=== PATIENT | female | born 1935 | race Caucasian/White ===

== ENCOUNTER 2017-05-30 17:40 | Inpatient (IN) | payer OTHER ==
[~2017-05-30] VITALS: Ht 147.3 cm; Wt 71.0 kg
--- NOTE | 2017-05-30 20:02 | ED NURSING NOTES ---
Clinical Report - Nurses Formerly [facility] [address] [place] [address] 05/30/2017 17:42 [id number] Triage time 18:15. Acuity: LEVEL 3. Chief Complaint: (Weakness). Alert. No acute distress. --18:20 Kael Fermin R.N. 18:15 05/30/17. BP: 123/37. HR: 64. RR: 20. O2 saturation: 96%. Temp: 98.7 F. Pain level now 0/10. --18:20 Kael Fermin R.N. Weight: 70.3 kg stated. Height/Length: 57 inches Per Patient. BMI: 33.6. --18:18 Kael Fermin R.N. Medications Albuterol Sulfate HFA Inhalation. Amitriptyline HCl Oral 25 mg, daily. Azelastine HCl Nasal. Clopidogrel Bisulfate Oral (Tablet 75 mg), daily. Folic Acid Oral. Hydroxychloroquine Sulfate Oral 200, Daily. Levofloxacin Oral. Levothyroxine Sodium Oral 112 mcg, daily. Lisinopril Oral 5 mg, daily. MetFORMIN HCl Oral 500 mg, daily. Metoprolol Tartrate Oral 25 mg, Daily. Omeprazole Oral 40 mg, daily. Pravastatin Sodium Oral 40 mg, daily. PredniSONE Oral 1 mg, daily. Senna Oral. --19:14 Kael Fermin R.N. Allergies None. --18:16 Kael Fermin R.N. History Historian: patient and family. Onset. (7 days ago). ( Patient seen at [facility] 7 days ago and dx with pneumonia and given iv antibiotics and sent home on oral. Seen 4 days later at [facility] and given a different ab. unsure of usual meds). She has had weakness. --18:20 Kael Fermin R.N. Interventions ID band on patient. To room. --18:20 Kael Fermin R.N. PHYSICAL ASSESSMENT GENERAL / NEURO / PSYCH: Alert. Oriented X 4. Appears in no acute distress. RESPIRATORY: Respirations not labored. --18:20 Kael Fermin R.N. NURSING PROGRESS NOTES Patient gowned. Call light placed in reach. Bed placed in lowest position. --18:20 Kael Fermin R.N. Care transferred and report given. ( Report to DEANNA Zavala). --19:21 Kael Fermin R.N. EKG time: (1905). EKG was ordered, performed by a tech and shown to the ED physician. --19:23 Elías Vicente R.N. late entry - 19:12 05/30/17. Patient transported to radiology by stretcher with tech. (19:May 30 2017). --19:30 Sally Ingram R.N. late entry - 19:05/30/17. Patient returned from radiology by stretcher with tech. (:May 30 2017). --19:30 Sally Ingram R.N. 19:15 05/30/17. BP: 123/47. HR: 60. RR: 20. O2 saturation: 99% on room air. Pain level now: 0/10. --19:32 Sally Ingram R.N. 19:32 05/30/17. BP: 126/102 (large adult cuff) taken on the left arm. HR: 60. RR: 22. O2 saturation: 96% on room air. Pain level now: 0/10. --19:33 Sally Ingram R.N. Patient ID band checked for patient name and birthdate: patient confirmed. Blood samples drawn from the peripheral IV site by nurse ; labeled in presence of the patient and sent to lab: rainbow set: blood culture (1st set). Line flushed with 10 mL normal saline post blood draw. --19:45 Brandon Boyle R.N. 19:43 05/30/2017 Started bag #1 1000 mL IV Fluids IV NS (Saline); bolus of 500 mL over 30 minute(s) then at 1000 mL/hr over 30 minute(s) via site #1 via IV pump. Allergies verified and confirmed 5 rights. IV patency established. IV site checked: no pain, redness, or swelling. IV flushed thoroughly pre- and post-medication administration. --19:48 Sally Ingram R.N. 19:46 05/30/2017 Site #1 started via IV in the left forearm with an 20g angiocath, with aseptic technique and good blood return; one attempt. Blood drawn: rainbow set. Labeled in the presence of the patient and sent to the lab. Saline lock flushed with 10 mL saline. --19:46 Brandon Boyle R.N. Patient transported to CT by stretcher with tech. (19:48 May 30 2017). --19:48 Sally Ingram R.N. Patient returned from CT by stretcher with tech. (19:53 May 30 2017). --19:53 Sally Ingram R.N. 20:05 05/30/17. ( Patient up to commode, UA sample collected.). --20:05 Sally Ingram R.N. ( Patients filling out paperwork for admittance, Patient complained of BP cuff being too tight, this was removed and replaced on left side). --20:31 Sally Ingram R.N. 20:33 05/30/17. BP: 156/44 (regular adult cuff) taken on the right arm, while sitting. HR: 58. RR: 20. O2 saturation: 99% on room air. Pain level now: 0/10. --20:34 Sally Ingram R.N. 20:43 05/30/17. BP: 122/50 (large adult cuff) taken on the left arm, while sitting. HR: 60. RR: 18. O2 saturation: 99% on room air. Pain level now: 0/10. --20:43 Sally Ingram R.N. Cardiac rhythm: normal sinus rhythm. --20:45 Sally Ingram R.N. 21:05 05/30/17. HR: 62. RR: 20. O2 saturation: 97% on room air. Pain level now: 0/10. --21:05 Sally Ingram R.N. ( Dr Cárdenas in with patient and ). --21:05 Sally Ingram R.N. ( Dr Cárdenas is done with patient, will call for transport). --21:26 Sally Ingram R.N. ( Dr Cárdenas back in with patient, daughter at bedside with patients ). --21:33 Sally Ingram R.N. 18:30 05/30/17. BP: 111/57 (large adult cuff) taken on the left arm. HR: 59. RR: 18. O2 saturation: 97% on room air. Pain level now: 0/10. --22:00 Sally Ingram R.N. 18:45 05/30/17. BP: 126/41 (large adult cuff) taken on the left arm. HR: 59. RR: 18. O2 saturation: 97% on room air. Pain level now: 0/10. --22:00 Sally Ingram R.N. 19:45 05/30/17. BP: 127/47 (large adult cuff) taken on the left arm. HR: 60. RR: 18. O2 saturation: 97% on room air. Pain level now: 010. --22:01 Sally Ingram R.N. 20:00 05/30/17. BP: 135/40 (large adult cuff) taken on the left arm. HR: 66. RR: 18. O2 saturation: 95% on room air. Pain level now: 0/10. --22:02 Sally Ingram R.N. 20:15 05/30/17. BP: 156/44 (large adult cuff) taken on the right arm. HR: 62. RR: 20. O2 saturation: 99% on room air. Pain level now: 010. --22:02 Sally Ingram R.N. 21:15 05/30/17. BP: 126/46 (large adult cuff) taken on the left arm, while sitting. HR: 62. RR: 20. O2 saturation: 99% on room air. Pain level now: 0/10. --22:03 Sally Ingram R.N. 21:50 05/30/2017 IV Fluids IV NS Continued: upon transfer at the rate of 125 mL/hr. 250 mL remaining bag #1. IV patency established. IV site checked: no pain, redness, or swelling. IV flushed thoroughly. --22:05 Sally Ingram R.N. DISPOSITION / DISCHARGE Report was given to a nurse via a phone call. Report included patient's care, treatment, medications, reviewed medication reconcilliation, and condition (including any recent changes or anticipated changes). All questions were answered. Report was acknowledged. (DEANNA Cristina). Bed obtained and ready ([address] Cárdenas sees patient). --20:44 Sally Ingram R.N. Departure time: 2156May 30 2017. --22:04 Sally Ingram R.N. 22:03 05/30/17. BP: 139/42 (large adult cuff) taken on the left arm. HR: 62. RR: 20. O2 saturation: 98% on room air. Temp: 98.6 F (oral). Pain level now: 0/10. --22:04 Sally Ingram R.N. Admitted to Acute Care (205). Transported via stretcher by transport team. --22:05 Sally Ingram R.N. Locked/Released at 05/31/2017 3:36 by Sally Ingram R.N.
--- NOTE | 2017-05-30 20:02 | ED ORDER SUMMARY ---
..... Patient: GUANAKITO FRAGA OrderSheet [facility] VisitID: [id number] [place] [address] 82y, F Registration Date/Time: 05/30/2017 ORDER SHEET Weight: 70.3 kg (stated) Allergies: None GENERAL ORDERS: Chest 2V Urgent (18:58 05/30/2017 Indra AMAYA) (Ack 19:02 Sarah) (19:25 MCampbell) Cover Machine Operator (Continuous) (18:58 05/30/2017 Indra AMAYA) (19:30 JSanders R.N.) UA-Culture if indicated Urgent (18:59 05/30/2017 Indra AMAYA) (Ack 19:02 Sarah) (20:14 JSanders R.N.) Cardiac Panel Stat (18:05/30/2017 Indra AMAYA) (Ack 19:02 Sarah) (19:44 JSanders R.N.) BNP Urgent (18:59 05/30/2017 Indra AMAYA) (Ack 19:02 Sarah) (19:45 JSanders R.N.) Lipase Urgent (18:59 05/30/2017 Indra AMAYA) (Ack 19:02 Sarah) (19:45 JSanders R.N.) Amylase Urgent (18:59 05/30/2017 Indra AMAYA) (Ack 19:02 Sarah) (19:45 JSanders R.N.) TSH Urgent (18:59 05/30/2017 Indra AMAYA) (Ack 19:02 Sarah) (19:45 JSanders R.N.) Pulse oximeter (18:59 05/30/2017 Indra AMAYA) (19:31 JSanders R.N.) EKG - ER Stat (18:59 05/30/2017 Indra AMAYA) (19:10 JSimbeck R.N.) PCT (Procalcitonin) Urgent (18:59 05/30/2017 Indra AMAYA) (Ack 19:02 Sarah) (19:45 JSanders R.N.) CRP Urgent (18:59 05/30/2017 Indra AMAYA) (Ack 19:02 Sarah) (19:45 BRDAFORDanders R.N.) Blood Culture (Yes) (see med list) Urgent (18:59 05/30/2017 Indra AMAYA) (Ack 19:02 Sarah) (19:45 BRADFORDanders R.N.) Soft Tissue Neck Urgent (19:26 05/30/2017 Indra AMAYA) (Ack 19:27 Adriana) (19:52 MCampbell) MEDICATION ORDERS: IV FLUIDS: IV NS : initial bolus 500 mL (1000 mL/hr), then 125 mL/hr for 4h (NOW); Routine (18:58 05/30/2017 Indra AMAYA) (Ack 19:07 JSanders R.N.) (19:48 JSanders R.N.) ORDER SHEET NOTES: [Electronically signed by Sally Ingram R.N. (03:36 05/31/2017)] [Electronically signed by Riky Pascual MD (07:21 05/31/2017)] [Electronically locked/signed by Sally Ingram R.N. (03:36 05/31/2017)]
--- NOTE | 2017-05-30 20:02 | ED CLINICAL REPORT ---
Clinical Report - Physicians/Mid Levels [facility] [address] [place] [address] 05/30/2017 17:42 [id number] Time Seen: 18:02 May 30 2017. Arrived- By private vehicle. Historian- patient. CPT: ER phys charges level 5 plus (#[id number]). EKG interpretation (#[id number]). HISTORY OF PRESENT ILLNESS Chief Complaint: WEAKNESS. ( Onset. (7 days ago). ( Patient seen at [facility] 7 days ago and dx with pneumonia and given iv antibiotics and sent home on oral. Seen 4 days later at [facility] and given a different ab. unsure of usual meds). She has had weakness.). Severity described as moderate at its maximum. When seen in the E.D., severity described as moderate. Described as feeling weak all over. This started about 1 weeks ago and is still present. No nausea or vomiting. (Pt had a fall 5 days ago while using her walker and could not get up . Family members had to be called to help get her up. This is unusual for her. is afraid she will continue falling when trying to use her walker.). Recent medical care: The patient was seen recently at another facility in the emergency department ([place] [facility] 05/23-). ( Seen at [facility] 3 days ago and not much better. Put on Levaquin. Pt not better since then.). Seen for similar symptoms. Evaluation/treatment: x-rays and labs- Rocephin 1g in ER , zithromax 500 mg in ER. Discharged with Zithromax. Diagnosis: (Pneumonia). REVIEW OF SYSTEMS No headache, double vision, fainting episodes, chest pain or palpitations. No fever, abdominal pain, diarrhea, difficulty with urination or skin rash. She has had a sore throat, weakness, and a cough. She has had difficulty walking. All systems otherwise negative, except as recorded above. PAST HISTORY Hypertension. ( Breast CA : Bilateral mastectomies. CAD , stents times 2 , last 2014. LAD and RCA. CVA: Diplopia Diabetes Esophageal dysmotility Fatty Liver Fractures: Right foot. GERD Hypothyroid Obesity). Medications: Albuterol Sulfate HFA Inhalation. Amitriptyline HCl Oral 25 mg, daily. Azelastine HCl Nasal. Clopidogrel Bisulfate Oral (Tablet 75 mg), daily. Folic Acid Oral. Hydroxychloroquine Sulfate Oral 200, Daily. Levofloxacin Oral. Levothyroxine Sodium Oral 112 mcg, daily. Lisinopril Oral 5 mg, daily. MetFORMIN HCl Oral 500 mg, daily. Metoprolol Tartrate Oral 25 mg, Daily. Omeprazole Oral 40 mg, daily. Pravastatin Sodium Oral 40 mg, daily. PredniSONE Oral 1 mg, daily. Senna Oral. Allergies: None. SOCIAL HISTORY Former smoker. No alcohol use. ADDITIONAL NOTES The nursing notes have been reviewed. PHYSICAL EXAM Vital Signs: 05/30/2017 18:15 BP: 123/37. HR: 64. RR: 20. O2 saturation: 96%. Temp: 98.7 F. Appearance: Alert. No acute distress. (Pale and weak appearing.). Eyes: No nystagmus. Extraocular movements normal. ENT: Normal ENT inspection. TM's normal. Dry mucous membranes present. Pharynx normal. (no pharyngeal swelling.). Neck: Normal inspection. Neck supple. No meningeal signs or lymphadenopathy. CVS: Normal heart rate and rhythm. Heart sounds normal. Respiratory: No respiratory distress. Rhonchi present. Abdomen: Soft and nontender. Back: Normal inspection. Skin: Normal skin color. No rash. Extremities: Extremities exhibit normal ROM. No calf tenderness. No lower extremity edema. Neuro: Alert. Mood/affect normal. Speech normal. Cranial nerves normal (as tested). No cerebellar findings. She has had constant, generalized weakness. No sensory deficit. Reflexes normal. LABS, X-RAYS, AND EKG EKG: Normal sinus rhythm. Rate: 58. Bradycardia. Normal P waves. RBBB. Non-specific ST segment / T wave abnormalities. Prior EKG unavailable. The study has been interpreted contemporaneously. The study has been independently viewed by me. The EKG appears to be a good tracing. Chest X-ray: Infiltrate in the left upper lobe and left lower lobe. Consistent with pneumonia. Views: PA and lateral. Technique: good. The X-rays were independently viewed by me. Laboratory Tests: CBC w Diff: (CHARLY: 05/30/2017 19:40) ( [facility] 05/30/2017 19:54) IP Test Result Flag Units (Reference) WHITE BLOOD COUNT 5.3 K/uL (4.5-11.5) MANUAL DIFFERENTIAL TO FOLLOW. RED BLOOD COUNT 3.14 L M/uL (4.00-5.20) HEMOGLOBIN 10.3 L gm/dL (12.0-16.0) HEMATOCRIT 30.9 L % (36.0-46.0) MEAN CELL VOLUME 98 fL (80-100) MEAN CORPUSCULAR HGB 33 pg (26-34) MEAN CORPUSCULAR HGB CONC 33 g/dL (31-37) RED CELL DISTRIBUTION WIDTH 15.3 H % (11.6-14.8) PLATELET COUNT 433 H K/uL (150-400) [id number]: (CHARLY: 05/30/2017 19:40) ( [facility] 05/30/2017 20:02) Final results Test Result Flag Units (Reference) C-REACTIVE PROTEIN 3.3 H mg/dL (0.0-0.9) BNP: (CHARLY: 05/30/2017 19:40) ( [facility] 05/30/2017 20:20) Final results Test Result Flag Units (Reference) B-TYPE NATRIURETIC PEPTIDE 46.2 pg/ml (5-100) Lipase: (CHARLY: 05/30/2017 19:40) ( [facility] 05/30/2017 20:11) Final results Test Result Flag Units (Reference) LIPASE 176 U/L (73-393) AMYLASE 67 U/L (25-115) THYROID STIMULATING HORMONE 1.043 uIU/mL (0.30-3.74) CHEM 13 PANEL: (CHARLY: 05/30/2017 19:40) ( [facility] 05/30/2017 20:10) Final results Test Result Flag Units (Reference) GLUCOSE 81 mg/dL (70-110) BUN 17 mg/dL (7-18) CREATININE 1.1 mg/dL (0.6-1.3) Estimated GFR 50.79 mL/min Estimated GFR- >60 mL/min Note: Persistent reduction over 3 months in eGFR<60 mL/min/1.73 m2 defines CKD. Patients with eGFR values>=60 mL/min/1.73 m2 may also have CKD if evidence ofpersistent proteinuria. Additional information may be foundat www.kidney.org. SODIUM 137 mmol/L (136-145) POTASSIUM 4.8 mmol/L (3.5-5.1) CHLORIDE 102 mmol/L (98-107) CARBON DIOXIDE 25 mmol/L (21-32) CALCIUM 8.6 mg/dL (8.5-10.1) TOTAL PROTEIN 6.4 g/dL (6.4-8.2) ALBUMIN 2.7 L g/dL (3.3-5.0) BILIRUBIN, TOTAL 0.6 mg/dL (0.0-1.0) ALKALINE PHOSPHATASE 79 U/L (46-116) AST (SGOT) 35 U/L (15-37) ALT (SGPT) 26 U/L (12-78) CPK 70 U/L (24-260) MAGNESIUM 2.1 mg/dL (1.8-2.4) TROPONIN I <0.05 ng/mL (0.00-1.5) TROPONIN REFERENCE RANGE:<0.1 NEGATIVE0.1-1.5 INDETERMINANT>1.5 POSITIVE . PROGRESS AND PROCEDURES Course of Care: IV NS BC times 1 Pt already on levaquin and zithromax. Antibiotic choice deferred to Dr Cárdenas. Discussed case with on-call health care provider, (Melia). Reviewed test results. Agreed upon treatment plan and decision to admit. Health care provider will see patient in ED. Patient/family counseled. Old medical records ordered. Disposition orders written. Disposition: Admitted to Acute Care. CLINICAL IMPRESSION [place].LLL, RLL pneumonia : Failed out patient treatment. Progressive weakness Falls. (Electronically signed by Riky Pascual MD 05/31/2017 7:21)
--- NOTE | 2017-05-30 20:02 | ED ORDER SUMMARY ---
..... Patient: GUANAKITO FRAGA OrderSheet [facility] VisitID: [id number] [place] [address] 82y, F Registration Date/Time: 05/30/2017 ORDER SHEET Weight: 70.3 kg (stated) Allergies: None GENERAL ORDERS: Chest 2V Urgent (18:58 05/30/2017 Indra AMAYA) (Ack 19:02 Sarah) (19:25 MCampbell) Freight Clerk (Continuous) (18:58 05/30/2017 Indra AMAYA) (19:30 JSanders R.N.) UA-Culture if indicated Urgent (18:59 05/30/2017 Indra AMAYA) (Ack 19:02 Sarah) (20:14 JSanders R.N.) Cardiac Panel Stat (18:05/30/2017 Indra AMAYA) (Ack 19:02 Sarah) (19:44 JSanders R.N.) BNP Urgent (18:59 05/30/2017 Indra AMAYA) (Ack 19:02 Sarah) (19:45 JSanders R.N.) Lipase Urgent (18:59 05/30/2017 Indra AMAYA) (Ack 19:02 Sarah) (19:45 JSanders R.N.) Amylase Urgent (18:59 05/30/2017 Indra AMAYA) (Ack 19:02 Sarah) (19:45 JSanders R.N.) TSH Urgent (18:59 05/30/2017 Indra AMAYA) (Ack 19:02 Sarah) (19:45 JSanders R.N.) Pulse oximeter (18:59 05/30/2017 Indra AMAYA) (19:31 JSanders R.N.) EKG - ER Stat (18:59 05/30/2017 Indra AMAYA) (19:10 JSimbeck R.N.) PCT (Procalcitonin) Urgent (18:59 05/30/2017 Indra AMAYA) (Ack 19:02 Sarah) (19:45 JSanders R.N.) CRP Urgent (18:59 05/30/2017 Indra AMAYA) (Ack 19:02 Sarah) (19:45 BRADFORDanders R.N.) Blood Culture (Yes) (see med list) Urgent (18:59 05/30/2017 Indra AMAYA) (Ack 19:02 Sarah) (19:45 BRADFORDanders R.N.) Soft Tissue Neck Urgent (19:26 05/30/2017 Indra AMAYA) (Ack 19:27 Adriana) (19:52 MCampbell) MEDICATION ORDERS: IV FLUIDS: IV NS : initial bolus 500 mL (1000 mL/hr), then 125 mL/hr for 4h (NOW); Routine (18:58 05/30/2017 Indra AMAYA) (Ack 19:07 JSanders R.N.) (19:48 JSanders R.N.) ORDER SHEET NOTES: [Electronically signed by Sally Ingram R.N. (03:36 05/31/2017)] [Electronically signed by Riky Pascual MD (07:21 05/31/2017)] [Electronically locked/signed by Sally Ingram R.N. (03:36 05/31/2017)]
--- NOTE | 2017-05-30 20:02 | ED CLINICAL REPORT ---
Clinical Report - Physicians/Mid Levels [facility] [address] [place] [address] 05/30/2017 17:42 [id number] Time Seen: 18:02 May 30 2017. Arrived- By private vehicle. Historian- patient. CPT: ER phys charges level 5 plus (#[id number]). EKG interpretation (#[id number]). HISTORY OF PRESENT ILLNESS Chief Complaint: WEAKNESS. ( Onset. (7 days ago). ( Patient seen at [facility] 7 days ago and dx with pneumonia and given iv antibiotics and sent home on oral. Seen 4 days later at [facility] and given a different ab. unsure of usual meds). She has had weakness.). Severity described as moderate at its maximum. When seen in the E.D., severity described as moderate. Described as feeling weak all over. This started about 1 weeks ago and is still present. No nausea or vomiting. (Pt had a fall 5 days ago while using her walker and could not get up . Family members had to be called to help get her up. This is unusual for her. is afraid she will continue falling when trying to use her walker.). Recent medical care: The patient was seen recently at another facility in the emergency department ([facility] 05/23-). ( Seen at [facility] 3 days ago and not much better. Put on Levaquin. Pt not better since then.). Seen for similar symptoms. Evaluation/treatment: x-rays and labs- Rocephin 1g in ER , zithromax 500 mg in ER. Discharged with Zithromax. Diagnosis: (Pneumonia). REVIEW OF SYSTEMS No headache, double vision, fainting episodes, chest pain or palpitations. No fever, abdominal pain, diarrhea, difficulty with urination or skin rash. She has had a sore throat, weakness, and a cough. She has had difficulty walking. All systems otherwise negative, except as recorded above. PAST HISTORY Hypertension. ( Breast CA : Bilateral mastectomies. CAD , stents times 2 , last 2014. LAD and RCA. CVA: Diplopia Diabetes Esophageal dysmotility Fatty Liver Fractures: Right foot. GERD Hypothyroid Obesity). Medications: Albuterol Sulfate HFA Inhalation. Amitriptyline HCl Oral 25 mg, daily. Azelastine HCl Nasal. Clopidogrel Bisulfate Oral (Tablet 75 mg), daily. Folic Acid Oral. Hydroxychloroquine Sulfate Oral 200, Daily. Levofloxacin Oral. Levothyroxine Sodium Oral 112 mcg, daily. Lisinopril Oral 5 mg, daily. MetFORMIN HCl Oral 500 mg, daily. Metoprolol Tartrate Oral 25 mg, Daily. Omeprazole Oral 40 mg, daily. Pravastatin Sodium Oral 40 mg, daily. PredniSONE Oral 1 mg, daily. Senna Oral. Allergies: None. SOCIAL HISTORY Former smoker. No alcohol use. ADDITIONAL NOTES The nursing notes have been reviewed. PHYSICAL EXAM Vital Signs: 05/30/2017 18:15 BP: 123/37. HR: 64. RR: 20. O2 saturation: 96%. Temp: 98.7 F. Appearance: Alert. No acute distress. (Pale and weak appearing.). Eyes: No nystagmus. Extraocular movements normal. ENT: Normal ENT inspection. TM's normal. Dry mucous membranes present. Pharynx normal. (no pharyngeal swelling.). Neck: Normal inspection. Neck supple. No meningeal signs or lymphadenopathy. CVS: Normal heart rate and rhythm. Heart sounds normal. Respiratory: No respiratory distress. Rhonchi present. Abdomen: Soft and nontender. Back: Normal inspection. Skin: Normal skin color. No rash. Extremities: Extremities exhibit normal ROM. No calf tenderness. No lower extremity edema. Neuro: Alert. Mood/affect normal. Speech normal. Cranial nerves normal (as tested). No cerebellar findings. She has had constant, generalized weakness. No sensory deficit. Reflexes normal. LABS, X-RAYS, AND EKG EKG: Normal sinus rhythm. Rate: 58. Bradycardia. Normal P waves. RBBB. Non-specific ST segment / T wave abnormalities. Prior EKG unavailable. The study has been interpreted contemporaneously. The study has been independently viewed by me. The EKG appears to be a good tracing. Chest X-ray: Infiltrate in the left upper lobe and left lower lobe. Consistent with pneumonia. Views: PA and lateral. Technique: good. The X-rays were independently viewed by me. Laboratory Tests: CBC w Diff: (CHARLY: 05/30/2017 19:40) ( [facility] 05/30/2017 19:54) IP Test Result Flag Units (Reference) WHITE BLOOD COUNT 5.3 K/uL (4.5-11.5) MANUAL DIFFERENTIAL TO FOLLOW. RED BLOOD COUNT 3.14 L M/uL (4.00-5.20) HEMOGLOBIN 10.3 L gm/dL (12.0-16.0) HEMATOCRIT 30.9 L % (36.0-46.0) MEAN CELL VOLUME 98 fL (80-100) MEAN CORPUSCULAR HGB 33 pg (26-34) MEAN CORPUSCULAR HGB CONC 33 g/dL (31-37) RED CELL DISTRIBUTION WIDTH 15.3 H % (11.6-14.8) PLATELET COUNT 433 H K/uL (150-400) [id number]: (CHARLY: 05/30/2017 19:40) ( [facility] 05/30/2017 20:02) Final results Test Result Flag Units (Reference) C-REACTIVE PROTEIN 3.3 H mg/dL (0.0-0.9) BNP: (CHARLY: 05/30/2017 19:40) ( [facility] 05/30/2017 20:20) Final results Test Result Flag Units (Reference) B-TYPE NATRIURETIC PEPTIDE 46.2 pg/ml (5-100) Lipase: (CHARLY: 05/30/2017 19:40) ( [facility] 05/30/2017 20:11) Final results Test Result Flag Units (Reference) LIPASE 176 U/L (73-393) AMYLASE 67 U/L (25-115) THYROID STIMULATING HORMONE 1.043 uIU/mL (0.30-3.74) CHEM 13 PANEL: (CHARLY: 05/30/2017 19:40) ( [facility] 05/30/2017 20:10) Final results Test Result Flag Units (Reference) GLUCOSE 81 mg/dL (70-110) BUN 17 mg/dL (7-18) CREATININE 1.1 mg/dL (0.6-1.3) Estimated GFR 50.79 mL/min Estimated GFR- >60 mL/min Note: Persistent reduction over 3 months in eGFR<60 mL/min/1.73 m2 defines CKD. Patients with eGFR values>=60 mL/min/1.73 m2 may also have CKD if evidence ofpersistent proteinuria. Additional information may be foundat [email or web address]. SODIUM 137 mmol/L (136-145) POTASSIUM 4.8 mmol/L (3.5-5.1) CHLORIDE 102 mmol/L (98-107) CARBON DIOXIDE 25 mmol/L (21-32) CALCIUM 8.6 mg/dL (8.5-10.1) TOTAL PROTEIN 6.4 g/dL (6.4-8.2) ALBUMIN 2.7 L g/dL (3.3-5.0) BILIRUBIN, TOTAL 0.6 mg/dL (0.0-1.0) ALKALINE PHOSPHATASE 79 U/L (46-116) AST (SGOT) 35 U/L (15-37) ALT (SGPT) 26 U/L (12-78) CPK 70 U/L (24-260) MAGNESIUM 2.1 mg/dL (1.8-2.4) TROPONIN I <0.05 ng/mL (0.00-1.5) TROPONIN REFERENCE RANGE:<0.1 NEGATIVE0.1-1.5 INDETERMINANT>1.5 POSITIVE . PROGRESS AND PROCEDURES Course of Care: IV NS BC times 1 Pt already on levaquin and zithromax. Antibiotic choice deferred to Dr Cárdenas. Discussed case with on-call health care provider, (Melia). Reviewed test results. Agreed upon treatment plan and decision to admit. Health care provider will see patient in ED. Patient/family counseled. Old medical records ordered. Disposition orders written. Disposition: Admitted to Acute Care. CLINICAL IMPRESSION CAM[place].LLL, RLL pneumonia : Failed out patient treatment. Progressive weakness Falls. (Electronically signed by Riky Pascual MD 05/31/2017 7:21)
--- NOTE | 2017-05-30 20:29 | DIAGNOSTIC IMAGING REPORT ---
PROCEDURE: XR SOFT TISSUE NECK INDICATION: DIFFICULTY BREATHING TECHNIQUE: AP and lateral views. COMPARISON: None. FINDINGS: Soft tissues of the neck are within normal limits, including the airway, laryngeal ventricle, and epiglottis. Nasopharynx appears normal. No evidence of radiopaque foreign body. Moderate degenerative changes of the cervical spine. IMPRESSION: 1. Normal soft tissues of the neck.
--- NOTE | 2017-05-30 20:39 | DIAGNOSTIC IMAGING REPORT ---
PROCEDURE: XR CHEST 2 VIEW INDICATION: Recent diagnosis of left upper lobe pneumonia. TECHNIQUE: PA and lateral views. COMPARISON: None. FINDINGS: Allowing for suboptimal inspiration, there are mild bibasilar parenchymal changes, right greater than left. There mild increase parenchymal change of the left upper lung. Heart and mediastinum are normal. There mild degenerate changes of the thoracic spine. There is a 10% old compression deformity upper lumbar vertebra. IMPRESSION: 1. Allowing for suboptimal inspiration, mild increased parenchymal changes at the lung bases and left upper lung compatible with pneumonia (e.g., aspiration, bacterial). 2. Findings discussed with Dr. Pascual.
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
--- NOTE | 2017-05-30 22:13 | Progress Note ---
Subjective General ADVANCED CARE PLAN History of Present Illness The patient is a 82-year-old white female with a significant past medical history of hypertension, breast CA status post bilateral mastectomy, coronary disease status post coronary stent placement, cerebrovascular disease, diabetes mellitus, gastroesophageal reflux, hypothyroidism, obesity, allergic rhinitis, rheumatoid arthritis, hyperlipidemia, and recent pneumonia who presented to [facility] emergency department on the day of admission secondary to complaints of diffuse weakness. [facility] ER evaluation was consistent with pneumonia, diffuse weakness, and anemia. Secondary to the above, the patient was admitted by Sherman Cárdenas M.D. for further evaluation and treatment. For other history present illness, past medical history, family history, social history, review of systems, and admission physical examination please see the patient's history and physical examination and ER visit note in the patient's medical record. A discussion was undertaken with the patient regarding previous advance care arrangements/decisions. The following advanced directives were noted by the patient and discussed with me at the time of admission. ADVANCED DIRECTIVES: 1. Living well: No 2. POLST: Yes 3. CODE STATUS: NO CODE 4. Durable Power Boiler Testing Technician [facility] care: No 5. Donor card: No The patient has expressed interest in not pursuing any form of resuscitation at this time. She has opted not to pursue intubation/mechanical ventilation, CPR, electrical cardioversion, or life-sustaining efforts involving drugs at the time of cardiopulmonary arrest. The patient's wishes were documented in the chart and orders regarding the patient's wishes entered into the [employer] CPOE system. The "Advance Care Plan Document" was distributed to patient to discuss with her family. 15- 30 minutes was spent in performing the above tasks and documentation of the patient's advanced care plan.
--- NOTE | 2017-05-30 22:13 | Progress Note ---
Subjective General ADVANCED CARE PLAN History of Present Illness The patient is a 82-year-old white female with a significant past medical history of hypertension, breast CA status post bilateral mastectomy, coronary disease status post coronary stent placement, cerebrovascular disease, diabetes mellitus, gastroesophageal reflux, hypothyroidism, obesity, allergic rhinitis, rheumatoid arthritis, hyperlipidemia, and recent pneumonia who presented to [facility] emergency department on the day of admission secondary to complaints of diffuse weakness. [facility] ER evaluation was consistent with pneumonia, diffuse weakness, and anemia. Secondary to the above, the patient was admitted by Sherman Cárdenas M.D. for further evaluation and treatment. For other history present illness, past medical history, family history, social history, review of systems, and admission physical examination please see the patient's history and physical examination and ER visit note in the patient's medical record. A discussion was undertaken with the patient regarding previous advance care arrangements/decisions. The following advanced directives were noted by the patient and discussed with me at the time of admission. ADVANCED DIRECTIVES: 1. Living well: No 2. POLST: Yes 3. CODE STATUS: NO CODE 4. Durable Power Engineering Design Supervisor [facility] care: No 5. Donor card: No The patient has expressed interest in not pursuing any form of resuscitation at this time. She has opted not to pursue intubation/mechanical ventilation, CPR, electrical cardioversion, or life-sustaining efforts involving drugs at the time of cardiopulmonary arrest. The patient's wishes were documented in the chart and orders regarding the patient's wishes entered into the [employer] CPOE system. The "Advance Care Plan Document" was distributed to patient to discuss with her family. 15- 30 minutes was spent in performing the above tasks and documentation of the patient's advanced care plan.
[2017-05-30 22:22] VITALS: BP 165/56
[2017-05-31] MEDS ORDERED: AMITRIPTYLINE H25 MG PO (00:06)
[2017-05-31] MEDS ORDERED: ACETAMINOPHEN325 MG PO (00:06)
[2017-05-31] MEDS ORDERED: ASPIRIN 81 LOW81 MG PO (00:07)
[2017-05-31] MEDS ORDERED: AZITHROMYC200 MG/5 M PO (00:08)
[2017-05-31] MEDS ORDERED: CALCIUM CARBON500 MG PO (00:09)
[2017-05-31] MEDS ORDERED: CLOPIDOGREL75 MG PO (00:10)
[2017-05-31] MEDS ORDERED: NORCO1 TA1 PO (00:11)
[2017-05-31] MEDS ORDERED: SYNTHROID112 MCG PO (00:12)
[2017-05-31] MEDS ORDERED: PLAQUENIL200 M1 PO (00:12)
[2017-05-31] MEDS ORDERED: PRINIVIL5 MG PO (00:13)
[2017-05-31] MEDS ORDERED: METFORMIN HCL500 MG PO (00:14)
[2017-05-31] MEDS ORDERED: NITROSTAT0.4 MG SL (00:15)
[2017-05-31] MEDS ORDERED: METOPROLOL SUCC25 MG PO (00:15)
[2017-05-31] MEDS ORDERED: OMEPRAZOLE40 MG PO (00:17)
[2017-05-31] MEDS ORDERED: PRAVACHOL40 MG PO (00:18)
[2017-05-31 02:33] VITALS: BP 135/58
--- NOTE | 2017-05-31 05:02 | Progress Note ---
Subjective General Note Date: May 31, 2017 Admission Date: May 30, 2017 Hospital Day: 2 PCP: Dr. Smith Status: Inpatient, ACU Advanced Directive: NO CODE Room: 205 Admission History: The patient is a 82-year-old white female with a significant past medical history of hypertension, breast CA status post bilateral mastectomy, coronary disease status post coronary stent placement, cerebrovascular disease, diabetes mellitus, gastroesophageal reflux, hypothyroidism, obesity, allergic rhinitis, rheumatoid arthritis, hyperlipidemia, and recent pneumonia who presented to [facility] emergency department on the day of admission secondary to complaints of diffuse weakness. [facility] ER evaluation was consistent with pneumonia, diffuse weakness, and anemia. Secondary to the above, the patient was admitted by Sherman Cárdenas M.D. for further evaluation and treatment. For other history present illness, past medical history, family history, social history, review of systems, and admission physical examination please see the patient's history and physical examination and ER visit note in the patient's medical record. Subjective: The patient states she is doing well. Only complaints at this time are lack of sleep last night. Weakness improved. Denies cough at this time. Patient requests: None Medications and Allergies Medications Current Medications Sig/Chasity Start time Last Medication Dose Route Stop Time Status Admin Atorvastatin Calcium 40 MG QPM 05/31 1800 AC PO Clopidogrel Bisulfate 75 MG DAILY 05/31 0900 AC PO Metoprolol Tartrate 12.5 MG BID 05/31 09 AC PO Insulin Human Lispro See Dose ACHS 05/31 0730 AC Insts (1) SC Levothyroxine Sodium 112 MCG DAILY@0600 05/31 0600 AC PO Enoxaparin Sodium 30 MG QHS 05/31 0100 CAN SC Enoxaparin Sodium 30 MG QHS 05/31 0100 AC 05/31 SC 0134 Levofloxacin/Dextrose 150 ML Q48H 05/31 0100 AC 05/31 IV 0046 Acetaminophen 650 MG Q6H PRN 05/30 2130 AC 05/31 PO 0142 Al Hydrox/Mg Hydrox/ 15 ML Q1H PRN 05/30 2130 AC Simethicone PO Albuterol/Ipratropium 3 ML RTQ6H PRN 05/30 2130 AC IN Atropine Sulfate 0.5 MG Q3MIN PRN 05/30 2130 AC IV Dextrose/Sodium 1,000 ML ASDIRECTED 05/30 2130 AC 06/30 Chloride/Electrolyt IV 0046 Lidocaine HCl See Dose ONCE PRN 05/30 2130 AC Insts (2) IV Magnesium Hydroxide 10 ML DAILY PRN 05/30 2130 AC PO Morphine Sulfate 1 MG Q30MIN PRN 05/30 2130 AC IV Morphine Sulfate 2 MG Q3M PRN 05/30 2130 AC IV Nitroglycerin 0.4 MG Q5M PRN 05/30 2130 AC SL Dose Instructions: (1)Insulin Human Lispro: LOW DOSE SLIDING SCALE (2)Lidocaine HCl: 1.5 MG/KG Allergies Coded Allergies: NKA (05/31/17) Allergies None. --18:16 Kael Fermin R.N. Reconcile Medications Scheduled Medications Acetaminophen (Acetaminophen 325 MG) 325 MG TAB 650 MG PO Q4H (Reported) Amitriptyline HCl (Amitriptyline HCl 25 MG) 25 MG TAB 25 MG PO QHS (Reported) Aspirin (Aspirin 81 Low Dose) 81 MG CHW 81 MG PO DAILY (Reported) Azithromycin (Azithromycin 200 MG/5 Ml Suspension) 200 MG/5 ML KENNEDY 250 MG PO DAILY (Reported) Calcium Carbonate 500 MG CHW 500 MG PO BID (Reported) Clopidogrel Bisulfate (Clopidogrel 75 MG) 75 MG TAB 75 MG PO DAILY (Reported) Hydroxychloroquine Sulfate (Plaquenil 200 MG) 200 MG TAB 200 MG PO DAILY ( Reported) Levothyroxine Sodium (Synthroid 112 Mcg) 112 MCG TAB 112 MCG PO DAILY ( Reported) Lisinopril (Prinivil 5 MG) 5 MG TAB 5 MG PO DAILY (Reported) Metformin Hydrochloride (Metformin HCl 500 MG) 500 MG TAB 500 MG PO AM ( Reported) Metoprolol Succinate (Metoprolol Succinate ER 25 MG) 25 MG TAB 25 MG PO BID ( Reported) Omeprazole 40 MG CAP 40 MG PO DAILY (Reported) Pravastatin Sodium (Pravachol) 40 MG TAB 40 MG PO HS (Reported) Scheduled PRN Medications Hydrocodone-Acetaminophen 5/325 MG ([place] 5/325 MG) 1 TAB TAB 1 TAB PO Q6H PRN PAIN (Reported) Nitroglycerin (Nitrostat 0.4 MG) 0.4 MG SUB 0.4 MG SL Q5MIN X 3 PRN CHEST PAIN (Reported) Physical Exam Vital Signs / I&Os Vital Signs Date Time Temp Pulse Resp B/P Pulse O2 O2 Flow FiO2 Ox Delivery Rate 05/31 0233 98.2 78 18 135/58 95 Room Air 05/30 2222 98.1 60 18 165/56 100 Room Air I&O 05/31 0000 05/30 1600 05/30 0800 Intake Total Output Total 600 Balance -600 General Appearance Alert, Oriented X3, Cooperative, No acute distress Lungs Normal air movement, scattered rhonchi Cardiovascular Regular rate and rhythm, Normal S1 and S2 Abdomen Normal bowel sounds, Soft, No tenderness, No guarding Extremities No cyanosis, No clubbing Neurological Cranial nerves intact, No lateralizing signs Psych/Mental Status Mental status normal, Mood normal LAB Results Laboratory Tests 05/30 Chemistry C-Reactive Protein (0.0 - 0.9 mg/dL) 3.3 B-Natriuretic Peptide (5 - 100 pg/ml) 46.2 Procalcitonin (0 - 0.5 ng/mL) <0.5 Urines Urine Color YELLOW Urine Appearance CLEAR Urine pH (5.0 - 8.0) 5.5 Ur Specific [place] (1.010 - 1.030) 1.015 Urine Protein (NEGATIVE) NEGATIVE Urine Ketones (NEGATIVE) TRACE Urine Blood (NEGATIVE) NEGATIVE Urine Nitrite (NEGATIVE) NEGATIVE Urine Bilirubin (NEGATIVE) NEGATIVE Urine Urobilinogen (0.2 - 1.0 EU/dL) 0.2 Ur Leukocyte Esterase (NEGATIVE) TRACE Urine RBC (0 - 1 rbc/hpf) NONE SEEN Urine WBC (0 - 1 wbc/hpf) 3-5 Ur Epithelial Cells (0 - 5 EPI/hpf) 1-3 Urine Bacteria (NONE SEEN) MODERATE (2+ TO 3+) Urine Glucose (NEGATIVE) NEGATIVE Urine Comment CULTURE INDICATED 05/30 Chemistry Plasma Sodium (136 - 145 mmol/L) 137 Plasma Potassium (3.5 - 5.1 mmol/L) 4.8 Plasma Chloride (98 - 107 mmol/L) 102 CO2 (Enzymatic) (21 - 32 mmol/L) 25 BUN (7 - 18 mg/dL) 17 Creatinine (0.6 - 1.3 mg/dL) 1.1 Est GFR ( Amer) (mL/min) >60 Est GFR (Non-Af Amer) (mL/min) 50.79 Glucose (70 - 110 mg/dL) 81 Plasma Calcium (8.5 - 10.1 mg/dL) 8.6 Plasma Magnesium (1.8 - 2.4 mg/dL) 2.1 Total Bilirubin (0.0 - 1.0 mg/dL) 0.6 AST (15 - 37 U/L) 35 ALT (12 - 78 U/L) 26 Alkaline Phosphatase (46 - 116 U/L) 79 Creatine Kinase (24 - 260 U/L) 70 Troponin (0.00 - 1.5 ng/mL) <0.05 Total Protein (6.4 - 8.2 g/dL) 6.4 Albumin (3.3 - 5.0 g/dL) 2.7 Amylase (25 - 115 U/L) 67 Lipase (73 - 393 U/L) 176 TSH 3rd Generation (0.30 - 3.74 uIU/mL) 1.043 Coagulation INR (0.8 - 1.2) 1.1 Hematology WBC (4.5 - 11.5 K/uL) 5.3 RBC (4.00 - 5.20 M/uL) 3.14 Hgb (12.0 - 16.0 gm/dL) 10.3 Hct (36.0 - 46.0 %) 30.9 MCV (80 - 100 fL) 98 MCH (26 - 34 pg) 33 RDW (11.6 - 14.8 %) 15.3 Neut % (Auto) (50 - 75 %) 20 Lymph % (Auto) (25 - 40 %) 23 Schley % (Auto) (3 - 14 %) 1 Eos % (Auto) (0 - 4 %) 4 Baso % (Auto) (0 - 2 %) 0 Band Neutrophils % (0 - 8 %) 14 Metamyelocytes % (0 - 1 %) 28 Myelocytes (0 - 1 %) 10 Other Cell Type 0 Plt Count, EDTA (150 - 400 K/uL) 433 RBC Morphology NORMAL PUBS MCHC (31 - 37 g/dL) 33 Microbiology Date/Time Procedure - Status Source Growth 05/30 2010 Urine Culture - RECD URINE CC 05/30 1940 Blood Culture - RECD BLOOD Assessment and Plan Problem List 1. Pneumonia Plan -Status improved -Afebrile -WBC within normal limits with improved left shift -Continue Levaquin -Possible discharge in a.m. 2. Weakness Plan -Status improved. -Increase ambulation today. -Possible discharge this p.m. or in a.m. if status continued to improve 3. Hypertension Status Chronic Onset Date Unknown Plan -Blood pressure mildly elevated -Patient placed back on lisinopril 5 mg by mouth daily and Lopressor 12.5 mg by mouth twice a day -Low-salt diet -Monitor with adjustments in medical therapy based on blood pressure measurements 4. Diabetes mellitus Status Chronic Onset Date Unknown Plan -Patient with history of diabetes mellitus -Blood sugar well controlled -Fasting blood sugar today 100 mg/dL -Hemoglobin A1c normal at 5.8% -Insulin sliding scale -Monitor 5. Rheumatoid arthritis Status Chronic Onset Date Unknown Plan -stable -Not problematic -Continue hydroxychloroquine -Continue prednisone at stress dose 20 mg by mouth daily -Monitor -Rapidly wean prednisone 6. Anemia Status Acute Onset Date Unknown Plan -Patient with findings of mild anemia -H&H 9.4/28.5 -B12/folate, iron studies within normal limits -Monitor -Multivitamin - Current status: Fair, improved Anticipated discharge date: Anticipated discharge this p.m. or in a.m. Anticipated discharge placement: Home Patient care time: Time in chart review, patient interview, physical exam, CPOE, and care documentation: 25 mins Visit to patient today: 1 Complexity of care: Moderate DVT prophylaxis: Lovenox E&M Codes Rounding: Inpt-Moderate/[id number]
[2017-05-31 06:54] VITALS: BP 150/53
--- NOTE | 2017-05-31 07:21 | ED DISCHARGE INSTRUCTIONS ---
Patient: GUANAKITO FRAGA General Instructions [facility] VisitID: [id number] [address] [place] [address] 82y, F Registration Date/Time: 05/30/2017 CAMDEN.[email or web address], RLL pneumonia : Failed out patient treatment. Progressive weakness Falls. (Electronically signed by Riky Pascual MD 05/31/2017 7:21)
--- NOTE | 2017-05-31 07:21 | ED DISCHARGE INSTRUCTIONS ---
Patient: GUANAKITO FRAGA General Instructions [facility] VisitID: [id number] [address] [place] [address] 82y, F Registration Date/Time: 05/30/2017 CAMDEN.LLL, RLL pneumonia : Failed out patient treatment. Progressive weakness Falls. (Electronically signed by iRky Pascual MD 05/31/2017 7:21)
--- NOTE | 2017-05-31 07:21 | ED MED RECONCILIATION SUMMARY ---
Patient: GUANAKITO FRAGA Medication Reconciliation Report [facility] VisitID: [id number] [address] [place] [address] 82y, F Registration Date/Time: 05/30/2017 Weight: 70.3 kg Height/Length: 57 in. BMI: 33.6 ALLERGIES: None The patient's Home Medications are listed below: THE FOLLOWING MEDICATIONS NEED TO BE RECONCILED: Albuterol Sulfate HFA Inhalation Amitriptyline HCl Oral 25 mg, daily Azelastine HCl Nasal Clopidogrel Bisulfate Oral (75 mg), daily Folic Acid Oral Hydroxychloroquine Sulfate Oral 200, Daily Levofloxacin Oral Levothyroxine Sodium Oral 112 mcg, daily Lisinopril Oral 5 mg, daily MetFORMIN HCl Oral 500 mg, daily Metoprolol Tartrate Oral 25 mg, Daily Omeprazole Oral 40 mg, daily Pravastatin Sodium Oral 40 mg, daily PredniSONE Oral 1 mg, daily Senna Oral The source(s) of the original Home Medication information: Not obtained. The following Medications were given to the patient in the Emergency Department: IV NS IV Fluids bolus 500 mL over 30 minute(s), then 1000 mL/hr, administered: 05/30/2017 7:43:00 PM The following Medications were prescribed to the patient: None.
--- NOTE | 2017-05-31 07:21 | ED MAR SUMMARY ---
..... Medication Administration Record [facility] [address] [place] [address] Patient: GUANAKITO FRAGA Visit ID: [id number] 82y, F Weight: 70.3 kg Height/Length: 57 in BMI: 33.6 ALLERGIES: None Start 19:43 05/30/2017 Sally Ingram R.NSumi, Continued Upon Transfer 21:50 05/30/2017 Sally Ingram R.N. Medication Administered: IV NS (SALINE), Dose: IV Fluids over 30 minute(s), Rate: 1000 mL/hr, Bolus: 500 mL over 30 minute(s), Dispensed: 1000 mL bag, Site: #1. Medication Ordered: IV NS : initial bolus 500 mL (1000 mL/hr), then 125 mL/hr for 4h (NOW); Routine.
--- NOTE | 2017-05-31 07:21 | ED MAR SUMMARY ---
..... Medication Administration Record [facility] [address] [place] [address] Patient: GUANAKITO FRAGA Visit ID: [id number] 82y, F Weight: 70.3 kg Height/Length: 57 in BMI: 33.6 ALLERGIES: None Start 19:43 05/30/2017 Sally Ingram R.NSumi, Continued Upon Transfer 21:50 05/30/2017 Sally Ingram R.N. Medication Administered: IV NS (SALINE), Dose: IV Fluids over 30 minute(s), Rate: 1000 mL/hr, Bolus: 500 mL over 30 minute(s), Dispensed: 1000 mL bag, Site: #1. Medication Ordered: IV NS : initial bolus 500 mL (1000 mL/hr), then 125 mL/hr for 4h (NOW); Routine.
--- NOTE | 2017-05-31 07:21 | ED MED RECONCILIATION SUMMARY ---
Patient: GUANAKITO FRAGA Medication Reconciliation Report [facility] VisitID: [id number] [address] [place] [address] 82y, F Registration Date/Time: 05/30/2017 Weight: 70.3 kg Height/Length: 57 in. BMI: 33.6 ALLERGIES: None The patient's Home Medications are listed below: THE FOLLOWING MEDICATIONS NEED TO BE RECONCILED: Albuterol Sulfate HFA Inhalation Amitriptyline HCl Oral 25 mg, daily Azelastine HCl Nasal Clopidogrel Bisulfate Oral (75 mg), daily Folic Acid Oral Hydroxychloroquine Sulfate Oral 200, Daily Levofloxacin Oral Levothyroxine Sodium Oral 112 mcg, daily Lisinopril Oral 5 mg, daily MetFORMIN HCl Oral 500 mg, daily Metoprolol Tartrate Oral 25 mg, Daily Omeprazole Oral 40 mg, daily Pravastatin Sodium Oral 40 mg, daily PredniSONE Oral 1 mg, daily Senna Oral The source(s) of the original Home Medication information: Not obtained. The following Medications were given to the patient in the Emergency Department: IV NS IV Fluids bolus 500 mL over 30 minute(s), then 1000 mL/hr, administered: 05/30/2017 7:43:00 PM The following Medications were prescribed to the patient: None.
[2017-05-31 10:05] VITALS: BP 148/57
[2017-05-31 14:49] VITALS: BP 124/37
[2017-05-31 19:12] VITALS: BP 128/44
[2017-05-31 22:36] VITALS: BP 138/49
[2017-06-01 03:24] VITALS: BP 160/58
[2017-06-01 03:29] VITALS: BP 154/60
--- NOTE | 2017-06-01 06:52 | Progress Note ---
Subjective General Note Date: June 01, 2017 Admission Date: May 30, 2017 Hospital Day: 3 PCP: Dr. Smith Status: Inpatient, ACU Advanced Directive: NO CODE Room: 205 Admission History: The patient is a 82-year-old white female with a significant past medical history of hypertension, breast CA status post bilateral mastectomy, coronary disease status post coronary stent placement, cerebrovascular disease, diabetes mellitus, gastroesophageal reflux, hypothyroidism, obesity, allergic rhinitis, rheumatoid arthritis, hyperlipidemia, and recent pneumonia who presented to [facility] emergency department on the day of admission secondary to complaints of diffuse weakness. [facility] ER evaluation was consistent with pneumonia, diffuse weakness, and anemia. Secondary to the above, the patient was admitted by Sherman Cárdenas M.D. for further evaluation and treatment. For other history present illness, past medical history, family history, social history, review of systems, and admission physical examination please see the patient's history and physical examination and ER visit note in the patient's medical record. Subjective: The patient states she is doing well today. Up ambulating without problems. Eating well without problems. Weakness resolved. Ready for discharge Patient requests: Discharge today Medications and Allergies Medications Current Medications Sig/Chasity Start time Last Medication Dose Route Stop Time Status Admin Levofloxacin/Dextrose 150 ML Q48H 06/02 09 AC IV Atorvastatin Calcium 40 MG QPM 05/31 1800 AC 05/31 PO 1712 Clopidogrel Bisulfate 75 MG DAILY 05/31 09 AC 05/31 PO 0851 Hydroxychloroquine 200 MG DAILY 05/31 0900 AC 05/31 Sulfate PO 0851 Lisinopril 5 MG DAILY 05/31 0900 AC 05/31 PO 0851 Metoprolol Tartrate 12.5 MG BID 05/31 0900 AC 05/31 PO 2145 Insulin Human Lispro See Dose ACHS 05/31 0730 AC 05/31 Insts (1) SC 2145 Prednisone 20 MG DAILY 05/31 0645 AC 05/31 PO 0722 Levothyroxine Sodium 112 MCG DAILY@00 05/31 0600 AC 06/01 PO 0613 Enoxaparin Sodium 30 MG QHS 05/31 0100 AC 05/31 SC 2145 Acetaminophen 650 MG Q6H PRN 05/30 2130 AC 05/31 PO 0857 Al Hydrox/Mg Hydrox/ 15 ML Q1H PRN 05/30 213 AC Simethicone PO Albuterol/Ipratropium 3 ML RTQ6H PRN 05/30 2130 AC IN Atropine Sulfate 0.5 MG Q3MIN PRN 05/30 2130 AC IV Dextrose/Sodium 1,000 ML ASDIRECTED 05/30 2130 AC 05/31 Chloride/Electrolyt IV 2150 Lidocaine HCl See Dose ONCE PRN 05/30 2130 AC Insts (2) IV Magnesium Hydroxide 10 ML DAILY PRN 05/30 2130 AC PO Morphine Sulfate 1 MG Q30MIN PRN 05/30 2130 AC IV Morphine Sulfate 2 MG Q3M PRN 05/30 2130 AC IV Nitroglycerin 0.4 MG Q5M PRN 05/30 2130 AC SL Dose Instructions: (1)Insulin Human Lispro: LOW DOSE SLIDING SCALE (2)Lidocaine HCl: 1.5 MG/KG Allergies Coded Allergies: NKA (05/31/17) Allergies None. --18:16 Kael Fermin R.N. Reconcile Medications Scheduled Medications Acetaminophen (Acetaminophen 325 MG) 325 MG TAB 650 MG PO Q4H (Reported) Amitriptyline HCl (Amitriptyline HCl 25 MG) 25 MG TAB 25 MG PO QHS (Reported) Aspirin (Aspirin 81 Low Dose) 81 MG CHW 81 MG PO DAILY (Reported) Calcium Carbonate 500 MG CHW 500 MG PO BID (Reported) Clopidogrel Bisulfate (Clopidogrel 75 MG) 75 MG TAB 75 MG PO DAILY (Reported) Hydroxychloroquine Sulfate (Hydroxychloroquine Sulfate 200 MG) 200 MG TAB 200 MG PO DAILY Levofloxacin Hemihydrate (Levaquin 500 MG) 500 MG TAB 500 MG PO DAILY Levothyroxine Sodium (Synthroid 112 Mcg) 112 MCG TAB 112 MCG PO DAILY ( Reported) Lisinopril (Prinivil 5 MG) 5 MG TAB 5 MG PO DAILY (Reported) Metformin Hydrochloride (Metformin HCl 500 MG) 500 MG TAB 500 MG PO AM ( Reported) Metoprolol Succinate (Metoprolol Succinate ER 25 MG) 25 MG TAB 25 MG PO BID ( Reported) Omeprazole 40 MG CAP 40 MG PO DAILY (Reported) Pravastatin Sodium (Pravachol) 40 MG TAB 40 MG PO HS (Reported) Prednisone 5 MG TAB 5 MG PO DAILY Scheduled PRN Medications Hydrocodone-Acetaminophen 5/325 MG ([place] 5/325 MG) 1 TAB TAB 1 TAB PO Q6H PRN PAIN (Reported) Nitroglycerin (Nitrostat 0.4 MG) 0.4 MG SUB 0.4 MG SL Q5MIN X 3 PRN CHEST PAIN (Reported) Discontinued Medications Azithromycin (Azithromycin 200 MG/5 Ml Suspension) 200 MG/5 ML KENNEDY 250 MG PO DAILY (Reported) Discontinued reason: No Longer Taking Hydroxychloroquine Sulfate (Plaquenil 200 MG) 200 MG TAB 200 MG PO DAILY ( Reported) Discontinued reason: Duplicate Entry Physical Exam Vital Signs / I&Os Vital Signs Date Time Temp Pulse Resp B/P Pulse O2 O2 Flow FiO2 Ox Delivery Rate 06/01 0329 154/60 06/01 0324 97.5 60 18 160/58 95 Room Air 05/31 2236 97.3 56 18 138/49 98 Room Air 05/31 1912 97.3 68 18 128/44 97 Room Air 05/31 1830 Room Air 05/31 1449 98.1 67 18 124/37 95 Room Air 05/31 1005 97.5 57 18 148/57 95 Room Air 0.0 05/31 0852 Room Air 0.0 05/31 0654 97.0 66 18 150/53 98 Room Air I&O 06/01 0000 05/31 1600 05/31 0800 Intake Total 706 765 9423 Output Total 1150 600 600 Balance -310 -20 932 General Appearance Alert, Oriented X3, Cooperative, No acute distress Lungs Clear to auscultation, Normal air movement Cardiovascular Regular rate and rhythm, Normal S1 and S2 Abdomen Normal bowel sounds, Soft, No tenderness Extremities No cyanosis, No clubbing Psych/Mental Status Mental status normal, Mood normal LAB Results Laboratory Tests 06/01 0550 Hematology WBC (4.5 - 11.5 K/uL) 5.6 RBC (4.00 - 5.20 M/uL) 2.82 Hgb (12.0 - 16.0 gm/dL) 9.1 Hct (36.0 - 46.0 %) 27.8 MCV (80 - 100 fL) 99 MCH (26 - 34 pg) 32 RDW (11.6 - 14.8 %) 15.5 Neut % (Auto) (50 - 75 %) Pending Lymph % (Auto) (25 - 40 %) Pending Angelina % (Auto) (3 - 14 %) Pending Band Neutrophils % (0 - 8 %) Pending Plt Count, EDTA (150 - 400 K/uL) 386 PUBS MCHC (31 - 37 g/dL) 33 Assessment and Plan Problem List 1. Pneumonia Plan -Improved -Afebrile -WBC within normal limits. Persistent immature forms on peripheral smear -Continue Levaquin 500 mg by mouth daily 5 days -Follow up with PCP in 3-5 days 2. Weakness 3. Hypertension Status Chronic Onset Date Unknown Plan -Patient with long-standing hypertension -Blood pressure borderline elevated -Continue outpatient medical regimen -Low-salt diet -Patient to follow-up with PCP for adjustments in antihypertensive therapy -Follow up with PCP in next 3-5 days 4. Diabetes mellitus Status Chronic Onset Date Unknown Plan -Stable -Discharged on metformin 500 mg by mouth daily -Follow up with PCP as noted above 5. Rheumatoid arthritis Status Chronic Onset Date Unknown Plan -Stable, not problematic at this time -Continue hydroxychloroquine and prednisone -Prednisone placed on stress dose during hospitalization. Patient discharged on prednisone 10 mg by mouth daily for 3 days, 5 mg by mouth daily for 3 days, and then return to previous prednisone dosage schedule per rheumatology 6. Anemia Status Acute Onset Date Unknown Plan -Persistent mild anemia -H&H 9.1/27.8 -Iron profile, B12, folate within normal limits -Multivitamin -Outpatient follow-up with PCP -Follow next week for repeat CBC with manual differential. Hematology referral for persistent immature forms on peripheral smear. Current status: Fair, improved Anticipated discharge date: Today Anticipated discharge placement: Home Patient care time: Time in chart review, patient interview, physical exam, CPOE, and care documentation: Greater than 30 mins Visit to patient today: 1 Complexity of care: Moderate DVT prophylaxis: Lovenox For other recommendations regarding discharge diet, activity, followup, and discharge medications please see the patient's discharge instructions. Greater than 30 min. was spent in the patient's discharge preparation including discharge interview and physical examination, progress note, discharge instructions, and discharge summary E&M Codes Discharge: Inpt >30 min spent/[id number]
--- NOTE | 2017-06-01 06:55 | Discharge Summary ---
Discharge Summary Report Admit Date 05/30/17 Discharge Date 06/01/17 Admission Diagnosis 1. Pneumonia 2. Weakness 3. Diabetes mellitus 4. Rheumatoid arthritis 5. Gastroesophageal reflux 6. Hypertension 7. Coronary disease 8. Anemia Discharge Diagnosis 1. Pneumonia 2. Weakness 3. Diabetes mellitus 4. Rheumatoid arthritis 5. Gastroesophageal reflux 6. Hypertension 7. Coronary disease 8. Anemia Brief History The patient is a 82-year-old white female with a significant past medical history of hypertension, breast CA status post bilateral mastectomy, coronary disease status post coronary stent placement, cerebrovascular disease, diabetes mellitus, gastroesophageal reflux, hypothyroidism, obesity, allergic rhinitis, rheumatoid arthritis, hyperlipidemia, and recent pneumonia who presented to [facility] emergency department on the day of admission secondary to complaints of diffuse weakness. [facility] ER evaluation was consistent with pneumonia, diffuse weakness, and anemia. Secondary to the above, the patient was admitted by Sherman Cárdenas M.D. for further evaluation and treatment. For other history present illness, past medical history, family history, social history, review of systems, and admission physical examination please see the patient's history and physical examination and ER visit note in the patient's medical record. Hospital Course The following problems and their management were noted during the patient's hospitalization: 1. Pneumonia Status post much improved. Patient afebrile. No oxygen required. O2 sat room air 97% Continue Levaquin 500 mg by mouth daily for 5 day additional days. Follow-up with PCP in next 3-5 days 2. Weakness -Patient presented with diffuse weakness. This resolved early in the patient's hospital course. She is at her baseline status at the time of discharge. 3. Diabetes mellitus -The patient has a long-standing history of diabetes mellitus. Blood glucose well controlled her hospital stay. Continue metformin 500 mg by mouth daily. Follow-up with PCP in next 3-5 days. 4. Rheumatoid arthritis Stable. No changes outpatient medical regimen. Patient was placed on stress dose steroids with taper post hospitalization. Follow up PCP in next 3-5 days. See discharge instructions. 5. Gastroesophageal reflux Stable. Not problematic in the patient's hospital stay. Continue Prilosec. See discharge instructions 6. Hypertension Patient's blood pressure mildly elevated. No changes in antihypertensive therapy at this time. Discharge on low-salt diet. Outpatient follow per PCP this week for adjustments in medical therapy. 7. Coronary disease Stable. No history of chest pain. Outpatient follow-up with PCP. Continue outpatient medical regimen. 8. Anemia The patient was noted have findings of mild anemia. Iron studies, B12, folate unremarkable. Patient with immature forms on peripheral smear. Outpatient follow-up in 3-5 days with PCP for repeat CBC with manual differential. Recommend hematology referral for persistent immature forms on peripheral smear. Lab/Imaging Laboratory Tests 06/01 0550 Hematology WBC (4.5 - 11.5 K/uL) 5.6 RBC (4.00 - 5.20 M/uL) 2.82 Hgb (12.0 - 16.0 gm/dL) 9.1 Hct (36.0 - 46.0 %) 27.8 MCV (80 - 100 fL) 99 MCH (26 - 34 pg) 32 RDW (11.6 - 14.8 %) 15.5 Neut % (Auto) (50 - 75 %) Pending Lymph % (Auto) (25 - 40 %) Pending [place] % (Auto) (3 - 14 %) Pending Band Neutrophils % (0 - 8 %) Pending Plt Count, EDTA (150 - 400 K/uL) 386 PUBS MCHC (31 - 37 g/dL) 33 Discharge Instructions/Meds For other recommendations regarding discharge diet, activity, followup, and discharge medications please see the patient's discharge instructions. Discharge condition: Fair, improved Greater than 30 min. was spent in the patient's discharge preparation including discharge interview and physical examination, progress note, discharge instructions, and discharge summary The patient was interviewed and examined on the day of discharge. E&M Codes Discharge: Inpt >30 min spent/[id number]
[2017-06-01 07:28] VITALS: BP 131/45
[2017-06-01] MEDS ORDERED: HYDROXYCHLOROQ200 MG PO (09:15)
[2017-06-01] MEDS ORDERED: LEVAQUIN500 MG PO (09:15)
[2017-06-01] MEDS ORDERED: PREDNISONE5 MG PO (09:15)
--- NOTE | 2017-06-01 09:17 | Provider's Discharge Care Plan ---
Problem, Goal, Plan Problem List 1. Pneumonia Goals: Improve disease control, Prevent disease progress Instructions: Follow up as directed, Take meds as directed 2. Anemia Goals: Improve disease control, Prevent disease progress Instructions: Follow up as directed, Take meds as directed, Follow-up with your physician in 3-5 days to undergo repeat complete blood count. Follow-up with hematology if persistent changes in your white blood cell count type
== END 2017-06-01 10:30 | disposition home or self-care (01) | DRG 195 ==
LOC: ED SRH 17:40 → TRANS SRH 20:16 → ACUTE2 SRH 22:07
PROVIDERS: ADMIT Internal Medicine
DX: J18.9 Pneumonia, unspecified organism (principal); R53.1 Weakness; D64.9 Anemia, unspecified; D72.89 Other specified disorders of white blood cells; E11.9 Type 2 diabetes mellitus without complications; I10 Essential (primary) hypertension; M06.9 Rheumatoid arthritis, unspecified; K21.9 Gastro-esophageal reflux disease without esophagitis; I69.998 Other sequelae following unspecified cerebrovascular disease; H53.2 Diplopia; E03.9 Hypothyroidism, unspecified; Z79.84 Long term (current) use of oral hypoglycemic drugs; I25.10 Atherosclerotic heart disease of native coronary artery without angina pectoris; Z85.3 Personal history of malignant neoplasm of breast; Z79.52 Long term (current) use of systemic steroids; Z95.5 Presence of coronary angioplasty implant and graft
CPT/HCPCS: 90004; 90047; 90065; 90074; 90098; 90100; 90469; 90616; 91286; 91295; 91320; 91504; 91505; 91585; 91643; 92235; 92530; 92610; 92668; 92670; 92720; 93004; 93140; 94060; 95059; 95061; 95067